=== PATIENT | male | born 1950 | race African-American/Black ===

== ENCOUNTER 2019-09-05 06:24 | Inpatient (IN) | payer MEDICARE ==
[~2019-09-05] VITALS: Ht 182.9 cm; Wt 116.7 kg
[2019-09-05 06:25] VITALS: BP 212/113
--- NOTE | 2019-09-05 07:24 | NUR ---
MICHELLE, SISTER, PT OK'D TO TALK WITH HER TO LET HER KNOW WHAT IS GOING ON. [phone]
[2019-09-05 07:30] LABS: ABSOLUTE NEUTROPHILS 3.8 thou/uL (1.4-8.2); BASOPHILS 0.6 % (0.0-2.0); EOSINOPHILS 0.8 % (0.0-3.0); HEMATOCRIT 34.9 % (42.0-52.0); HEMOGLOBIN 11.3 gm/dL (14.0-18.0); LYMPHOCYTES 18.2 % (24.0-44.0); MCH 27.9 pg (26.0-34.0); MCHC 32.3 g/dL (28.0-37.0); MCV 86.6 fL (80.0-100.0); MONOCYTES 9.2 % (1.0-8.0); PLATELET COUNT 235 thou/uL (150-400); POLYS 71.2 % (36.0-66.0); RBC 4.04 mil/uL (4.50-6.00); WBC 5.4 thou/uL (4.0-11.0)
--- NOTE | 2019-09-05 07:30 | NUR ---
TOOK PATIENT OFF BIPAP AND PLACED ON HIGH FLOW NASAL CANNULA @ 10LPM. PATIENT IS MAKING A SNORING AND GRUNTING NOISE OFF BIPAP. WILL DISCUSS WITH AND SEE IF SHE IS WANTING HIM LEFT ON BIPAP DUE TO ORIENTATION AND RESPIRATIONS THAT MAY NOT BE EFFECTIVE
[2019-09-05 07:37] LABS: ANION GAP 7 mmol/L (7-16); BUN 13 mg/dL (7-18); CALCIUM 8.8 mg/dL (8.5-10.1); CHLORIDE 106 mmol/L (98-107); CO2 30 mmol/L (21-32); CREATININE 1.4 mg/dL (0.7-1.3); GLUCOSE 57 mg/dL (74-106); POTASSIUM 4.2 mmol/L (3.5-5.1); SODIUM 143 mmol/L (136-145)
[2019-09-05 07:46] LABS: ALBUMIN 2.9 g/dL (3.4-5.0); DIRECT BILIRUBIN 0.2 mg/dL (<0.1-0.2); SGOT 70 U/L (15-37); SGPT 54 U/L (30-65); TOTAL BILIRUBIN 0.2 mg/dL (<0.1-1.0); TOTAL PROTEIN 8.3 g/dL (6.4-8.2); TROPONIN-I <0.06 ng/mL (<0.06)
[2019-09-05 08:05] LABS: BE(vivo) 0.2 mmol/L (-2 to +3); HCO3 26.5 mmol/L (22.0-26.0); PCO2 50.8 mmHg (35.0-45.0); PO2 101.6 mmHg (80.0-100.0); pH 7.336 (7.360-7.450); sO2 97.2 % (92.0-98.0)
--- NOTE | 2019-09-05 08:06 | EKG ---
[facility] [place] [address] ELECTROCARDIOGRAM REPORT Name: MACHO LEDESMA Room #: 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
[2019-09-05 08:15] LABS: URINE BILIRUBIN NEGATIVE (Negative); URINE BLOOD TRACE (Negative); URINE CLARITY CLEAR; URINE COLOR YELLOW; URINE GLUCOSE-RANDOM* NEGATIVE (Negative); URINE KETONES NEGATIVE (Negative); URINE LEUKOCYTES-REFLEX NEGATIVE (Negative); URINE NITRITE-REFLEX NEGATIVE (Negative); URINE PROTEIN (DIPSTICK) 1+ (Negative); URINE SPECIFIC GRAVITY 1.015 (1.005-1.035); URINE UROBILINOGEN 0.2 E.U./dl (0.2-1.0)
[2019-09-05 08:30] LABS: BACTERIA-REFLEX 1-9 Few /HPF (None Seen); CASTS None Seen /LPF (None Seen); CRYSTALS None Seen /LPF (None Seen); SQUAMOUS 0-3 Few /LPF (0-3); URINE RBC None Seen /HPF (0-2); URINE WBC-REFLEX None Seen /HPF (0-5)
[2019-09-05] MEDS ORDERED: XARELTO20 MG PO (08:58)
[2019-09-05] MEDS ORDERED: LIPITOR40 MG PO (08:58)
[2019-09-05] MEDS ORDERED: ADVAIR 500-501 EACH INH (08:58)
[2019-09-05] MEDS ORDERED: FUROSEMIDE 40 M40 MG PO (08:59)
[2019-09-05] MEDS ORDERED: JANUVIA100 MG PO (08:59)
[2019-09-05] MEDS ORDERED: JARDIANCE10 MG PO (08:59)
[2019-09-05] MEDS ORDERED: LEVEMIR FL100 UNIT/2 SUBQ (09:01)
[2019-09-05] MEDS ORDERED: POTASSIUM20 PO (09:01)
[2019-09-05] MEDS ORDERED: SPIRIVA18 MCG INH (09:02)
[2019-09-05] MEDS ORDERED: TRAZODONE 150150 M1 PO ×2 (09:02→19:53)
[2019-09-05] MEDS ORDERED: GABAPENTIN100 MG PO (09:03)
[2019-09-05] MEDS ORDERED: SUBOXONE 8 MG-1 EAC3 SUBLING ×2 (09:03→22:00)
[2019-09-05] MEDS ORDERED: LEXAPRO 10 MG T10 M1 PO (09:04)
[2019-09-05] MEDS ORDERED: PROAIR HFA8.5 GM INH (09:05)
[2019-09-05] MEDS ORDERED: IPRAT-ALBUT 0.5-3 ML INH ×2 (09:05→09:07)
[2019-09-05] MEDS ORDERED: PRINIVIL10 MG PO (09:06)
[2019-09-05] MEDS ORDERED: VENTOLIN HFA 1818 GM INH (09:06)
[2019-09-05] MEDS ORDERED: BUSPIRONE HCL5 MG PO (09:08)
[2019-09-05 12:38] VITALS: BP 162/94
[2019-09-05 12:52] VITALS: BP 168/96
[2019-09-05 13:09] VITALS: BP 168/96
--- NOTE | 2019-09-05 14:43 | NUR ---
ASSESSMENT: CM REVIEWED CHART AND SPOKE WITH PATIENT VIA PHONE WELL WITH HIS SISTER MICHELLE. PT WAS ADMITTED WITH INCREASED SHORTNESS OF BREATH. PT IS CURRENTLY IN ISOLATION TO RULE OUT COVID 19. PT LIVES AT HOME WITH HIS SISTER IN [place]. PT HAS ABOUT 10 STEPS WITH HANDRAILS TO GET INTO HIS BEDROOM. SISTER REPORTS PT NORMALLY AMBULATES INDEPENDENTLY BUT DOES HAVE A CANE AND WALKER AT HOME BUT DOES NOT USE IT ALTHOUGH SISTER ENCOURAGES HIM TO. PT HAS A NEBULIZER AT HOME. PT IS CURRENTLY ON 8L OXYGEN BUT DOES NOT HAVE IT ARRANGED AT HOME. PT IS UNCLEAR IF HE HAS HAD HH IN THE PAST AND REPORTS HE HAS NOT BEEN TO A SNF. PLANS ARE FOR PATIENT TO RETURN HOME ONCE MEDICALLY STABLE. CM WILL CONTINUE TO FOLLOW TO ASSIST NEEDED.
--- NOTE | 2019-09-05 18:05 | NUR ---
ALERT AND ORIENTED X 4, LUNGS COURSE AND WHEEZY IN ALL [place] BILATERALLY. WEANED TO 3LNC, REMAINS SOA AT REST. IV TEAM PLACED 20G IN RIGHT FOREARM, FLUSHES WELL. LARGE, BOW, FORMED BM THIS SHIFT, PASSING FLATUS. MESSAGE LEFT WITH DORA SERRATO REGARDING SOME HOME MEDS THAT THE PATIENT IS REQUESTING FOR HS. NO REPORTED NAUSEA/VOMITING. C/O PAIN IN LEFT LEG, WILL AWAIT ORDERS FOR PAIN MEDICATION. OOB WITH ASSIST X 2, IS ABLE TO USE URINAL AND BEDPAN. FALL PRECAUTIONS IN PLACE, CALLS APPROPRIATELY FOR ANY NEEDED ASSISTANCE.
[2019-09-05 19:39] VITALS: BP 147/82
[2019-09-05] MEDS ORDERED: TRAZODONE HCL100 MG PO (19:45)
[2019-09-05] MEDS ORDERED: XANAX1 MG PO (19:49)
--- NOTE | 2019-09-05 23:06 | NUR ---
ASSUMED PT CARE AROUND 1930. AXOX4. VSS. REQEUSTED TO HAVE HOME MEDS SUBOXOME,XANAX. SPOKE TO EMMA STEAM BLOCKER EXECUTIVE DIRECTOR OF NURSING AND MEDS RESTARTED. BS 417 REPORTED TO STEAM BLOCKER AND ADDITIONAL 5UNIT INSULIN GIVEN. NO S/S ACUTE DISTRESS NOTED OR REPORTED AT THIS TIME. CARE TRANSFERRED TO ANOTHER RN AT THIS TIME.
[2019-09-05 23:38] VITALS: BP 141/56
[2019-09-06 00:07] LABS: GLYCOHEMOGLOBIN (HGB A1C) 8.6 % (4.8-5.6)
--- NOTE | 2019-09-06 03:52 | NUR ---
Assumed pt care at 2300. Pt's A/OX4. VSS. Pt denies pain on assessment. LS coarse with wheezes, no c/o SOA. Oxygen titrated to 2L/NC by RT sats 100% at rest. Pt's max assist, voiding per urinal. Enhanced isolation maintained. Fall precautions in place,pt calls approp for help. Resting quietly at this time will continue to monitor pt.
[2019-09-06 04:00] VITALS: BP 159/96
[2019-09-06 09:00] VITALS: BP 137/80
[2019-09-06 10:45] LABS: ABSOLUTE NEUTROPHILS 6.7 thou/uL (1.4-8.2); BASOPHILS 0.1 % (0.0-2.0); HEMATOCRIT 29.3 % (42.0-52.0); HEMOGLOBIN 9.7 gm/dL (14.0-18.0); LYMPHOCYTES 6.5 % (24.0-44.0); MCH 28.5 pg (26.0-34.0); MCHC 33.2 g/dL (28.0-37.0); MCV 85.9 fL (80.0-100.0); MONOCYTES 2.4 % (1.0-8.0); PLATELET COUNT 188 thou/uL (150-400); RBC 3.41 mil/uL (4.50-6.00); RDW 13.9 % (10.5-14.5); WBC 7.3 thou/uL (4.0-11.0)
[2019-09-06 10:51] LABS: CALCIUM 8.5 mg/dL (8.5-10.1); CREATININE 1.4 mg/dL (0.7-1.3); MAGNESIUM 1.9 mg/dL (1.8-2.4); POTASSIUM 4.7 mmol/L (3.5-5.1)
--- NOTE | 2019-09-06 13:45 | NUR ---
ON-GOING ASSESSMENT: CM REVIEWED CHART AND SPOKE WITH ATTENDING. PT IS SLOWLY PROGRESSING TOWARDS DISCHARGE GOALS. PT IS DOWN TO 2L OF OXYGEN. PTS COVID TEST CAME BACK NEGATIVE AND THERAPIES WILL EVAL. PT IS POSSIBLE DISCHARGE SOON, CM WILL AWAIT FUTHER INPUT FROM THERAPIES.
[2019-09-06 17:27] VITALS: BP 144/85
--- NOTE | 2019-09-06 19:22 | NUR ---
Assumed pt care this am, pt is hard of hearing and has poor eyesight as well. Pt is very forgetfull , would not remember meals that he had just eaten an hour ago stating the meal never came. Covid test came back negative, VS have been stable. IV inserted by the IV team this am. Pt repeatedly asked for ice cream, chips and sugar through out the shift. Blood sugar checks and insulin given as per the emar. Cough is still noted, effort is good. Pt is O2 sat is in the high 90's to 100% with out O2. pt Andreea Johnson, Dr. Lyman would like to test for a 2nd covid to r/o. POC followed, no signs or verbalizations of distress noted. INforemd night nurse of plan, awaiting 2nd testing to be placed.
--- NOTE | 2019-09-07 07:45 | NUR ---
progress pt in bed most of shift repositions self, up with assist of 2 gb and walker iv antibiotics continue taking tramadol for pain and suboxone for pain. very anxious wants what he requests immediately get frustrated if you are not fast enough continue to monitor.
[2019-09-07 08:00] VITALS: BP 163/97
--- NOTE | 2019-09-07 10:12 | HC ---
[facility] [place] [address] CONSULTATION Name: MACHO LEDESMA Room #: [facility] IN M.R.#: [id number] Admission: 09/05/19 Attend Phys: Lawson Hurley MD Discharge: Date of : 52 Report #: [id number] THIS REPORT FOR: cc: IDA - Family physician unknown IDA - Family physician unknown Channing Ann MD ~ CC: Lawson PRIETO unknown DATE OF SERVICE: 09/06/2019 ENDOCRINE CONSULTATION CONSULTING PHYSICIAN: Dr. Hurley. REASON FOR CONSULTATION: Uncontrolled type 2 diabetes mellitus, severe hyperglycemia. HISTORY OF PRESENT ILLNESS: This is a 69-year-old male patient whose medical background is significant for multiple medical issues including COPD, hypertension, type 2 diabetes mellitus as well as DVT. The patient presented to the ER yesterday with progressive shortness of breath, weakness, and fatigue for the week preceding presentation. This happened in the absence of fever or cough. The patient was admitted for further care and monitoring and was admitted to the COVID observation unit while he rules out for this possibility. The patient is known to have type 2 diabetes mellitus and has had it for several years. The patient notes that he is on a regimen of Januvia 100 mg daily, Jardiance 25 mg daily and Levemir insulin 48 units twice a day at home. He notes that his blood glucose values are typically elevated and well over 200 mg/dL. He does not have routine physical activity program, and he denies issues with recurrent or significant hypoglycemia at home. The patient is not aware of issues pertaining to diabetic retinopathy, nephropathy, or neuropathy. The patient has not had a history of CAD that he is aware of. He is known to have hyperlipidemia and is maintained on atorvastatin 40 mg daily. He has hypertension and is maintained on a regimen of furosemide and lisinopril and believes that he does well as far as blood pressure control goes. REVIEW OF SYSTEMS: CONSTITUTIONAL: Fatigue, tiredness. No fever, chills or body weight changes. HEENT: Negative for sore throat, sinus pain or ear drainage. PULMONARY: Noted for shortness of breath, but not cough or hemoptysis. CARDIAC: Noted for shortness of breath including on exertion. No chest pain, no palpitations. GASTROINTESTINAL: Negative for abdominal pain, nausea, vomiting or changes in the bowel movement frequency. [address] [address] CONSULTATION Name: MACHO LEDESMA Room #: [address] [place] [address] IN M.R.#: [id number] Admission: 09/05/19 Attend Phys: Lawson Hurley MD Discharge: Date of : 52 Report #: [id number] NEUROLOGY: Negative for loss of consciousness, headaches or seizure activity. PSYCHIATRIC: Negative for delusions, hallucinations. Otherwise, review of systems noncontributory other than those mentioned in HPI. PAST MEDICAL HISTORY: 1. Type 2 diabetes mellitus. 2. Hypertension. 3. Hyperlipidemia. 4. Obesity. 5. Neuropathy. 6. Depression. 7. COPD. 8. History of left lower extremity DVT. 9. History of pleural effusion. 10. Hepatitis C. OUTPATIENT MEDICATIONS: Include Xanax 1 mg p.o. b.i.d., Suboxone 8 mg-2 mg, Advair 1 puff b.i.d., Xarelto 20 mg with dinner, atorvastatin 40 mg daily, Januvia 100 mg daily, Jardiance 25 mg daily, furosemide 40 mg daily, Levemir insulin 48 units b.i.d., KCl 20 mEq daily, trazodone 150 mg at bedtime, Spiriva daily, gabapentin 100 mg b.i.d., Lexapro 10 mg at bedtime, ipratropium-albuterol combination q. 6 hours p.r.n., albuterol 2 puffs q. 6 hours p.r.n., lisinopril 10 mg daily, buspirone 5 mg daily. ALLERGIES: No known drug allergies. FAMILY HISTORY: Noncontributory. SOCIAL HISTORY: The patient lives with his sister. Smokes a pack a day. Drinks alcohol only occasionally. Denies use of illicit drugs. PHYSICAL EXAMINATION: GENERAL: Pleasant -Lao male patient who is not in apparent pain or distress. VITAL SIGNS: Blood pressure is 137/80 mmHg, heart rate is 101 beats per minute, respiration 20 per minute, temperature 36.5 Celsius. CONSTITUTIONAL: The patient is lying in bed, appears comfortable, and not in pain or distress. HEENT: Anicteric sclerae. Intact extraocular motions. NECK: Supple, without JVD or thyromegaly. CHEST: Noted for limited air entry bilaterally with scattered rales and rhonchi, scattered wheezes, no crackles. HEART: Regular rate and rhythm without murmurs or gallops. ABDOMEN: Obese, but soft, lax. No guarding. Active bowel sounds. EXTREMITIES: Lower extremity exam is noted for trace ankle edema, skin breaks, ulcerations. Pedal pulses are faint. Sensation to light touch is moderately [facility] [address] [place] [address] CONSULTATION Name: MACHO LEDESMA Room #: 358-P ADM IN M.R.#: [id number] Admission: 09/05/19 Attend Phys: Lawson Hurley MD Discharge: Date of : 52 Report #: [id number] diminished bilaterally. NEUROLOGIC: Awake, alert and oriented to time, place and person. The remainder of his examination is nonfocal other than for the peripheral sensory deficits noted above. PSYCHIATRY: Pleasant, interactive. Normal mood and affect. LABORATORY RESULTS: Blood glucose on arrival was 44, then 139 and then blood glucose over the past 24 hours have run between 348 and 417 mg/dL. Otherwise, sodium 131, potassium 4.7, chloride 97, CO2 of 29, anion gap 5, BUN 24, creatinine 1.4, glucose 401. AST 70, total bilirubin 0.2, direct bilirubin 0.2, calcium 8.5, magnesium 1.9, alkaline phosphatase 129, ALT 54, total protein 8.3, albumin 2.9 and EGFR 61. Troponin negative. INR 1.0. White blood count 7.3, hemoglobin 9.7, hematocrit 29.3, platelets 188. COVID-19 not detected. Hemoglobin A1c 8.6%. ASSESSMENT AND PLAN: 1. Type 2 diabetes mellitus. The patient has suboptimal baseline control as per his reported blood glucose values as well as according to the measured hemoglobin A1c. To add to this baseline, the patient is dealing with acute pulmonary processes and is receiving therapy with multiple modalities including high dose glucocorticoid therapy in the form of methylprednisolone 62.5 mg IV t.i.d. This collective outlook had resulted in severe hyperglycemia, probably will be on his expected baseline of high 100 to low 200 mg/dL range. That said, I will advance his insulin coverage to include Lantus at a dose of 25 units b.i.d. in addition to Humalog supplemental scale at a dose of 18 units t.i.d. a.c. and Humalog supplemental scale coverage of moderate intensity. Blood glucose monitoring will continue a.c. and at bedtime and further therapeutic adjustments will be made accordingly. 2. Hypertension. The patient's level of blood pressure control is adequate on the current regimen, he is to continue with the same. 3. Hyperlipidemia. The patient is maintained on atorvastatin therapy and he tolerates it well, he is to continue with the same. 4. Chronic obstructive pulmonary disease, possible community-acquired pneumonia. The patient is currently receiving therapy with broad-spectrum antibiotics, bronchodilators and corticosteroids as per the pulmonary team. I certainly appreciate this consultation by Dr. Hurley. <ELECTRONICALLY SIGNED> By: Channing Ann MD 09/07/19 1012 1608 2255 Channing Ann MD /nt
--- NOTE | 2019-09-07 11:22 | NUR ---
REFERRAL RECEIVED FOR ACUTE REHAB. PATIENT'S INSURANCE IS OUT OF NETWORK FOR 5N. SHIRT IRONER INFORMED. THANK YOU FOR THIS REFERRAL.
--- NOTE | 2019-09-07 12:36 | 2DMMODE ---
[facility] [address] [place] [address] 2 D/M-MODE ECHOCARDIOGRAM Name: MACHO LEDESMA Room #: 358-P ADM IN M.R.#: [id number] Admission: 09/05/19 Attend Phys: Lawson Hurley MD Discharge: Date of : 52 Report #: [id number] THIS REPORT FOR: cc: FAM - Family physician unknown FAM - Family physician unknown Maurice Corral MD ~ APPROVED REPORT Study performed: 09/07/2019 10:59:43 EXAM: Comprehensive 2D, Doppler, and color-flow Echocardiogram Patient Location: Bedside Room #: [facility] Status: routine BSA: 2.41 HR: 101 bpm BP: 137/80 mmHg Rhythm: Tachycardia Other Information Study Quality: Good Indications Congestive Heart Failure Diabetes Dyspnea Hypertension/HDD 2D Dimensions RVDd: 42.68 mm IVSd: 12.84 (7-11mm) LVOT Diam: 20.80 (18-24mm) LVDd: 58.01 mm PWd: 13.26 (7-11mm) Ascending Ao: 33.65 (22-36mm) LVDs: 43.09 (25-40mm) Aortic Root: 34.16 mm IVC: 25.00 mm Volumes Left Atrial Volume (Systole) Single Plane 4CH: 86.50 mL Single Plane 2CH: 72.48 mL LA ESV Index: 35.00 mL/m2 Aortic Valve AoV Peak Rahat.: 1.77 m/s AO Peak Gr.: 12.56 mmHg LVOT Max P.63 mmHg [facility] [address] [place] [address] 2 D/M-MODE ECHOCARDIOGRAM Name: MACHO LEDESMA Room #: 358-[facility] IN .R.#: [id number] Admission: 09/05/19 Attend Phys: Sofy Su Discharge: Date of : 52 Report #: [id number] LVOT Max V: 1.29 m/s JARAD Vmax: 2.47 cm2 Mitral Valve E/A Ratio: 1.1 MV Decel. Time: 263.63 ms MV E Max Rahat.: 1.81 m/s MV A Rahat.: 1.65 m/s MV PHT: 76.45 ms IVRT: 51.90 ms Pulmonary Valve PV Peak Rahat.: 1.23 m/s PV Peak Gr.: 6.18 mmHg Pulmonary Vein P Vein S: 0.69 m/s P Vein A: 0.22 m/s P Vein D: 0.67 m/s P Vein A Dur.: 48.4 msec P Vein S/D Ratio: 1.03 Tricuspid Valve TR Peak Rahat.: 3.83 m/s TR Peak Gr.: 58.74 mmHg PA Pressure: 69.00 mmHg Left Ventricle Left ventricle is at the upper limits of normal. There is normal LV segmental wall motion. Mild concentric left ventricular hypertrophy. The left ventricular systolic function is normal. The left ventricular ejection fraction is within the normal range. LVEF is >55%. Grade II - pseudonormal filling dynamics. Right Ventricle The right ventricular systolic function is normal. Atria Left atrium is dilated. Right atrium is dilated. Aortic Valve The aortic valve is normal in structure. The Aortic valve is sclerotic. No aortic regurgitation is present. There is no aortic valvular stenosis. Mitral Valve The mitral valve is normal in structure. Moderate to severe mitral regurgitation No evidence of mitral valve stenosis. [facility] [address] [place] [address] 2 D/M-MODE ECHOCARDIOGRAM Name: MACHO LEDESMA Room #: 358-P [facility] IN .R.#: [id number] Admission: 09/05/19 Attend Phys: Sofy Su Discharge: Date of : 52 Report #: [id number] Tricuspid Valve The tricuspid valve is normal in structure. There is mild tricuspid regurgitation. Estimated PAP 65 mmHg. There is moderate-severe pulmonary hypertension. Pulmonic Valve The pulmonary valve is normal in structure. There is no pulmonic valvular regurgitation. Great Vessels The aortic root is normal in size. IVC is dilated and collapses <50% with inspiration. Pericardium There is no pericardial effusion. <Conclusion> Left ventricle is at the upper limits of normal. Mild concentric left ventricular hypertrophy. The left ventricular systolic function is normal. Grade II - pseudonormal filling dynamics. Left atrium is dilated. The Aortic valve is sclerotic. Moderate to severe mitral regurgitation There is mild tricuspid regurgitation. Estimated PAP 65 mmHg. <ELECTRONICALLY SIGNED> By: Maurice Corral MD 09/07/19 1235 1235 1235 Maurice Corral MD /INF
--- NOTE | 2019-09-07 15:39 | NUR ---
DAYANA reviewed chart and spoke with nursing and attending physician. Awaiting repeat COVID-19 test results. Pt is progressing towards goals for discharge. Pt is currently off O2 and ambulating independently. SW attempted to contact pt in room. No answer. DAYANA also attempted to call pt's sister, Helen, to discuss discharge plan. Plan is for pt to discharge home. Therapy has not evaluated pt at this time. DAYANA is following to assist as needed with discharge planning.
[2019-09-07 16:24] VITALS: BP 132/82
[2019-09-07 17:00] VITALS: BP 117/92
--- NOTE | 2019-09-07 17:07 | NUR ---
ASSUMED PATIENT CARE AT 070-0. A/O X3. IMPULSIVE SOMETIMES. ANXIOUS. SOB WIH EXERTION.MBULATED IN [facility]. 2+ EDEMA BLE. TRANSFER TO [facility] AT 1600.
[2019-09-07 19:15] VITALS: BP 131/79
[2019-09-08 04:16] VITALS: BP 164/99
--- NOTE | 2019-09-08 06:05 | NUR ---
ASSUME CARE 1900. PT/VITALS STABLE. DENIES ANY PAIN. TOLERATES ACTIVITY WELL. UP AD ALEXANDRO. NO DISTRESS NOTED. BLOOD SUGAR STABILIZED. ASSESSMENT CHARTED. PROGRESSING WELL WITH POC. PLAN IS POOSIBLE DISCHARGE TODAY. WILL CONTINUE TO MONITOR AND FOLLOW WITH POC
[2019-09-08 07:18] VITALS: BP 140/91
[2019-09-08 10:43] VITALS: BP 152/95
[2019-09-08 11:05] LABS: HEMATOCRIT 33.8 % (42.0-52.0); HEMOGLOBIN 10.9 gm/dL (14.0-18.0)
[2019-09-08 11:06] LABS: CALCIUM 8.7 mg/dL (8.5-10.1); CREATININE 1.5 mg/dL (0.7-1.3); POTASSIUM 5.3 mmol/L (3.5-5.1)
[2019-09-08 12:28] VITALS: BP 137/64
[2019-09-08 17:17] VITALS: BP 161/102
--- NOTE | 2019-09-08 19:16 | NUR ---
RECEIVED PT'S CARE AROUND 729; PT. 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 UPSET ST. "WHILE ARE YOU LOOKING ON MY STAFF"; EDUCATED ABOUT HOSPITAL POLICIE NOT ABLE TO SMOKE WHILE IN THE HOSPITAL & NURSE WAS NOT LOOKING OVER PT'S STAFF, BUT WAS HELPING TO LOOK FOR PT'S STAFF; SHOOTING AT NURSE "DO NOT GET ON MY STAFF"; DURING ASSESSMENT C/O PAIN; REQUESTED "XANAX"; AM MEDICATION GIVEN; PRN ANTI-ANXIETY MEDICATION GIVEN; FORGETFUL; NEEDS TO BE REMAINED THROUGH THE DAY TO CALL BEFORE GETTING UP FROM BED & MEDICATION WAS GIVEN; TRIED TO SMOKE CIGARRETE IN THE ROOM; SECURITY NOTIFIED; CIGARRETES TAKEN BY SECURITY; ASSESSMENT CHARGED; FOLLOWING POC; PASSED ON REPORT;
[2019-09-08 19:19] VITALS: BP 160/82
--- NOTE | 2019-09-09 03:37 | NUR ---
Pt. rested quietly during the night when checked on during frequent rounds. He became hostile during hs med pass. Pt. only took the meds that he wanted (see emar). Pt. upset and wants to go home. Started to get up and walk towards the door. When this nurse tried to talk to him he shrugged his hands. Aerodynamics Professor entered the room and we were able to redirect back to bed. He requested pain meds for leg pain (see emar) with some relief noted. Also, given a xanax for agitation (see emar) with relief noted. Bed alarm is on.
[2019-09-09 04:15] VITALS: BP 161/92
--- NOTE | 2019-09-09 04:15 | NUR ---
Pt. resting in bed. He is cool and clammy upon touch. Blood sugar is <20 per glucometer. Prn iv dextrose given (see emar). Blood sugar rechecked and still <20. Im glucogen given (see emar). Lab called for glucose draw. Pt. also congested and lung sounds are course. Head of the bed is elevated. Rt called and breathing treatment given and oral suctioning given. Trinity SERRATO was called and updated. New orders received for iv dextrose (see orders).
--- NOTE | 2019-09-09 05:11 | NUR ---
Pt. more arousable and blood sugar up to 39. Continue to monitor blood sugars.
--- NOTE | 2019-09-09 06:00 | NUR ---
Blood sugar up to 61 and pt. is easily arousable. Bed alarm is on.
[2019-09-09 06:20] LABS: ALBUMIN 2.7 g/dL (3.4-5.0); CALCIUM 8.7 mg/dL (8.5-10.1); CREATININE 1.3 mg/dL (0.7-1.3); TOTAL BILIRUBIN 0.2 mg/dL (<0.1-1.0); TOTAL PROTEIN 7.6 g/dL (6.4-8.2)
[2019-09-09 06:21] LABS: POTASSIUM 4.2 mmol/L (3.5-5.1)
[2019-09-09 06:36] LABS: HEMATOCRIT 37.6 % (42.0-52.0); HEMOGLOBIN 12.4 gm/dL (14.0-18.0); MCH 28.2 pg (26.0-34.0); MCV 85.4 fL (80.0-100.0); RBC 4.4 mil/uL (4.50-6.00); RDW 14.4 % (10.5-14.5); WBC 8.8 thou/uL (4.0-11.0)
[2019-09-09 08:06] VITALS: BP 141/91
[2019-09-09 12:16] LABS: TSH 1.518 uIU/mL (0.358-3.740)
[2019-09-09 15:43] VITALS: BP 144/78
--- NOTE | 2019-09-09 18:31 | NUR ---
RECEIVED PT'S CARE AROUND 0720; PT. ALERT; AWAKE; ST. "I AM UPSET WITH YOU"; D10 RUNNING AT 75 ML/H; BS 61; GAME PROTECTOR NOTIFIED ABOUT PT'S BS LESS THAN 21 THROUGH THE NIGHT & 61 DURING AM; ORDERS RECEIVED; DURING AM ASSESSMENT PT. ALERT TO PERSON; AM MEDICATIONS GIVNE; C/O PAIN OVER LLE; PRN PAIN MEDICATION GIVEN; DURING THE MORNING RESTLESS; UNCOOPERATIVE; IMPULSIVE FROM TIME TO TIME; EDUCATED ABOUT FALL PREVENTIONS; ST. UNDERSTANDING; NEEDS TO BE REMAINED; IV INFILTRATED; FLUIDS ON HOLD SINCE 1000; DR. KAMARA ROUNDING ON PT. DURING THE MORNING; PER DR. KAMARA REPORT PT DRINK AT LEAST ONE PINT OF ALCOHOL DAILY; SMOKER; HX OF CVA; REQUESTED TO TALK WITH HOSPITALIST; DR. PEREZ NOTIFIED & UPDATE BY DR. KAMARA; DURING LUNCH BS ON THE 200s; DR. ANAND ROUNDING; NOTIFIED; OK TO GIVE INSULIN; D10 D/C PER ORDER; DURING THE AFTERNOON PT. RESTLESS; PRN MEDICATION GIVEN; REMAINED RESTLESS; PHYSICIAN NOTIFIED; ORDERS RECEIVED; PT. RESTING; HOLDING MEDICATION AT THE MOMENT; SR ON THE MONITOR; ASSESSMENT CHARGED; FOLLOWING POC; WILL PASS ON REPORT;
[2019-09-09 19:46] VITALS: BP 145/81
--- NOTE | 2019-09-10 04:21 | NUR ---
ASSUMED PATIENT CARE AT 1845. VITAL SIGNS STABLE WITH PATIENT HAVING NO COMPLAINTS OF PAIN OR NAUSEA. PATIENT ALERT AND ORIENTED TO HIMSELF AND THAT HE IS IN THE HOSPITAL. FREQUENTLY IMPULSIVE, HE HAS RESPONDED TO NURSING STAFFS DIRECTIONS. UP MULTIPLE TIMES WITH ASSISTANCE INCIDENT FREE. CONTINUE PLAN OF CARE.
[2019-09-10 04:31] VITALS: BP 154/85
[2019-09-10 07:10] VITALS: BP 167/100
--- NOTE | 2019-09-10 07:18 | NUR ---
PATIENTS BLOOD SUGAR CHECKED AROUND 0520 THIS MORNING WITH PATIENT SHOWING BLOOD GLUCOSE LESS THAN 20. IM GLUCOGON GIVEN DUE TO QUESTION REGARDING PATIENTS IV PLACEMENT. PROVIDER CALLED AND ORDERS RECEIVED. PATIENTS BLOOD SUGAR HAS REBOUNDED IN TO MID 100'S PRIOR TO SHIFT CHANGE.
[2019-09-10 10:38] LABS: CALCIUM 9.2 mg/dL (8.5-10.1); CREATININE 1.2 mg/dL (0.7-1.3)
[2019-09-10 10:40] LABS: POTASSIUM 5.1 mmol/L (3.5-5.1)
[2019-09-10 11:48] VITALS: BP 169/88
[2019-09-10 16:18] VITALS: BP 155/79
--- NOTE | 2019-09-10 17:54 | NUR ---
Assumed care approx 0700. Pt confused and impulsive. Pt reports Lt flank pain and headache this shift. Medication given per orders and pt reports relief. Pt has been noncompliant and climbs out of bed/chair. Pt's sister, Helen, updated on status. Pt slowly progressing towards plan of care goals.
[2019-09-10 19:56] VITALS: BP 160/84
[2019-09-11 05:11] VITALS: BP 147/74
[2019-09-11 05:14] LABS: BE(vivo) 2.8 mmol/L (-2 to +3); HCO3 28.2 mmol/L (22.0-26.0); PCO2 46.8 mmHg (35.0-45.0); PO2 65.6 mmHg (80.0-100.0); pH 7.398 (7.360-7.450); sO2 92.8 % (92.0-98.0)
[2019-09-11 07:34] VITALS: BP 154/92
[2019-09-11 11:05] VITALS: BP 148/76
--- NOTE | 2019-09-11 11:18 | NUR ---
Assess for length of stay. Admit with acute respiratory failure, and acute metabolic encephalopathy. Hx DM, A1C 8.6%, COPD, HTN, CVA. Pt has been confused, impulsive but does tolerate meals eating 100%. Endocronologist adjusting medications as pt has developed some hypoglycemic episodes. Wts down 9 lb since admit, on torsemide. Low nutrition risk.
--- NOTE | 2019-09-11 12:57 | EKG ---
[facility] [place] [address] ELECTROCARDIOGRAM REPORT Name: MACHO LEDESMA Room #: 203-P ADM IN M.R.#: [id number] Admission: 09/05/19 Attend Phys: Lawson Hurley MD Discharge: Date of : 52 Report #: [id number] THIS REPORT FOR: cc: IDA - Family physician unknown FAM - Family physician unknown Dedrick Chawla MD [facility] THIS REPORT FOR: //name// [facility] Test Date: 2019-09-11 Test Time: 09:05:41 Pat Name: MACHO LEDESMA Department: Room: 203 Gender: M Crtts: JOI : 1950 Requested By: Lawson Hurley Order Number: [id number] MD: Dedrick Chawla Measurements Intervals [place] Rate: 80 P: 0 CA: 118 QRS: -2 QRSD: 82 T: 48 QT: 360 QTc: 416 Interpretive Statements Sinus rhythm Borderline short CA interval Compared to ECG 09/05/2019 06:33:07 Sinus tachycardia no longer present Electronically Signed On 09-11-2019 12:55:41 CDT by Dedrick Chawla [email or web address] <ELECTRONICALLY SIGNED> By: Dedrick Chawla MD, FACC 09/11/19 1255 4 4 Dedrick Chawla MD, [facility] /EPI
[2019-09-11 15:15] VITALS: BP 154/82
--- NOTE | 2019-09-11 16:29 | NUR ---
Spoke with sister regarding dc planning of patient. She reports she needs him home soon. He helps with the home. Discussed need for post acute care. Sister reports he will need to be agreeable. She reports he is stubborn. She has not preference. Sp with patient via phone. He is agreeable. He has no preference. His ins is [employer] medicare. Agreeable to referral to [facility].
--- NOTE | 2019-09-11 16:40 | NUR ---
FAXED REFERRAL TO [facility] SPOKE WITH SYLVIE IN ADM SHE RECEIVED REFERRAL AND WILL REVIEW. DP TO FOLLOW.
--- NOTE | 2019-09-11 17:03 | NUR ---
PT CARE ASSUMED APPROX 0700. ASSESSMENTS CHARTED. PT DENIES SOA. REPORTS LEFT FLANK PAIN AND NONCARDIAC CHEST PAIN. PAIN MANAGED ADEQUATELY PER PT PAIN REASSESSMENT. PT CONTINUES TO BE IMPULSIVE AND CONFUSED BUT REDIRECTS EASILY. PT IS LESS IMPULSIVE THAN YESTERDAY. VSS. BS ELEVATED. BS MANAGED WITH SSI. CLINICAL UPDATE GIVEN TO PT'S SISTER. SHE DENIES QUESTIONS OR CONCERNS REGARDING POC. PT TOLERATING POC. NO DISTRESS NOTED.
[2019-09-11 20:08] VITALS: BP 152/84
[2019-09-11 23:58] VITALS: BP 185/95
[2019-09-12] VITALS (8 sets, daily range): BP systolic 113–152; BP diastolic 55–90
--- NOTE | 2019-09-12 05:20 | NUR ---
PT A&O X3 AT HS ALERT TO SELF, PLACE AND SITUATION. ANXIOUS/IMPULSIVE AT HS BUT GOT BETTER THRO THE NIGHT. REFUSED BIPAP AT HS. NO COMPLAINS OF PAIN. CONTINUES WITH PRODUCTIVE COUGH. ACHS. INCONT OF URINE X1 THIS SHIFT USES URINAL. PT DOES NOT CALL APPROPRIATELY.
[2019-09-12 10:22] LABS: ALBUMIN 2.7 g/dL (3.4-5.0); CALCIUM 8.8 mg/dL (8.5-10.1); CREATININE 1.3 mg/dL (0.7-1.3); POTASSIUM 4.5 mmol/L (3.5-5.1); TOTAL BILIRUBIN 0.5 mg/dL (<0.1-1.0); TOTAL PROTEIN 6.8 g/dL (6.4-8.2)
[2019-09-12] MEDS ORDERED: SENNA-TIME S T1 EACH PO (11:46)
[2019-09-12] MEDS ORDERED: IPRAT-ALBUT 0.5-3 ML INH (11:46)
[2019-09-12] MEDS ORDERED: DEMADEX20 MG PO (11:46)
[2019-09-12] MEDS ORDERED: ASPIR 8181 MG PO (11:46)
[2019-09-12] MEDS ORDERED: XARELTO15 MG PO (11:46)
[2019-09-12] MEDS ORDERED: XARELTO20 MG PO (11:46)
[2019-09-12] MEDS ORDERED: VITAMIN B-1100 M2 PO (11:46)
[2019-09-12] MEDS ORDERED: PREDNISONE 10 M10 MG PO (11:46)
[2019-09-12] MEDS ORDERED: NICOTINE TRANSD21 M1 TRANSDERM (11:46)
[2019-09-12] MEDS ORDERED: LOPRESSOR50 PO (11:46)
[2019-09-12] MEDS ORDERED: SEROQUEL 25 MG25 M1 PO (11:46)
[2019-09-12] MEDS ORDERED: TRAMADOL 50 MG50 MG PO (11:46)
[2019-09-12] MEDS ORDERED: PEPCID20 MG PO (11:46)
[2019-09-12] MEDS ORDERED: CEFDINIR300 MG PO (11:49)
--- NOTE | 2019-09-12 13:16 | NUR ---
[facility] not accepting of referral of patient due to noncompliance. Sp with patient and sister. Sister lives in [place], referral to [facility]. Updated phys and RN.
--- NOTE | 2019-09-12 13:36 | NUR ---
FAXED REFERRAL TO [facility] RECEIVED CONFIRMATION AND LEFT MSG WITH DEYANIRA IN ADM. DP TO FOLLOW.
[2019-09-12 14:07] LABS: CHOLESTEROL 165 mg/dL (<200); HDL CHOLESTEROL 80 mg/dL (>40); LDL CHOLESTEROL 58 mg/dL (<100); TC:HDL 2.1 Ratio (Not establshd); TRIGLYCERIDE 135 mg/dL (<150); VLDL 27 mg/dL (<40)
--- NOTE | 2019-09-12 14:42 | NUR ---
[facility] accepting of patient. They do not have a bed today but will have tomorrow. They are in process of submitting for auth.
--- NOTE | 2019-09-12 17:27 | NUR ---
RECEIVED PT'S CARE AROUND 0710; PT. ON BED; RESTING WITH EYES CLOSED; EQUAL CHEST RISING NOTICED; SR ON THE MONITOR; DURING AM ASSESSMENT PT. ALERT TO PERSON & SITUATION; AM MEDICATIONS GIVEN; CALM & COOPERATIVE; C/O PAIN OVER LLE; PRN PAIN MEDICATION GIVEN; RESTING THROUGH THE DAY; COOPERATIVE THROUGH THE DAY; NO BM THROUGH THE DAY; PASSING GAS; MIRALAX & STOOL SOFTENER GIVEN PER SCHEDULED; STATUS CHANGE TO MST & MS; ASSESSMENT CHARGED; FOLLOWING POC; PT. TRANSFER TO ROOM 443; WILL CALL FOR REPORT;
--- NOTE | 2019-09-13 02:23 | NUR ---
ASSUMED PT CARE AT APPROX 1900.PT WAS OBSERVED LYING IN BED WITH HOB ELEVATED.PT ON RA AT SHIFT CHANGE.PT A FALL RISK BUT PT NOT COMPLIANT WITH FALL PROTOCOL.PT NEEDS CONSTSNT REMINDER TO USE THE CALL BUTTON.PT OBSERVED TWICE GETTING OOB WITHOUT ASSIST,PT STATED THAT HE WAS LOOKING FOR A AUTOMOTIVE DETAILER FOR HIS PHONE,HE WAS ENCOURAGED TO USE HIS CALL LIGHT.NO BM NOTED SO FAR.URINAL AT BEDSIDE.FALL PRECAUTIONS IN PLACE,CALL LIGHT WITHIN REACH.
[2019-09-13 02:50] VITALS: BP 140/86
[2019-09-13 07:36] VITALS: BP 137/58
[2019-09-13 08:35] LABS: HEMATOCRIT 36.8 % (42.0-52.0); MCH 27.7 pg (26.0-34.0); MCHC 32.5 g/dL (28.0-37.0); MCV 85.4 fL (80.0-100.0); RBC 4.31 mil/uL (4.50-6.00); RDW 14.3 % (10.5-14.5); WBC 6.1 thou/uL (4.0-11.0)
[2019-09-13 09:03] LABS: ALBUMIN 2.7 g/dL (3.4-5.0); CALCIUM 8.8 mg/dL (8.5-10.1); CREATININE 1.6 mg/dL (0.7-1.3); POTASSIUM 4.3 mmol/L (3.5-5.1); TOTAL BILIRUBIN 0.8 mg/dL (<0.1-1.0); TOTAL PROTEIN 7.1 g/dL (6.4-8.2)
[2019-09-13 11:04] VITALS: BP 104/47
[2019-09-13 11:44] VITALS: BP 128/70
[2019-09-13 12:04] VITALS: BP 128/70
[2019-09-13] MEDS ORDERED: CEFDINIR300 MG PO (12:10)
[2019-09-13] MEDS ORDERED: TRADJENTA5 MG PO (12:10)
[2019-09-13] MEDS ORDERED: NOVOLOG100 UNIT/1 SUBQ (12:10)
[2019-09-13] MEDS ORDERED: LANTUS SUBQ (12:10)
--- NOTE | 2019-09-13 12:50 | NUR ---
THIS NOTE IS IN REGARD TO POST FALL, THIS RN WAS ON BREAK, FRANCK R/RN ASSSITED THE PATIENT TO THE BATHROOM AND SHE ASKED ROYCE/FOOD AND NUTRITION TEACHER IF SHE HAD THE PATIENT, ROYCE/FOOD AND NUTRITION TEACHER WAS IN THE ROOM CUTTING OFF THE LIGHT AND WHEN SHE ENTERED THE BATHROOM HE WAS ON THE FLOOR, PATIENT ASSISTED UP BY ROYCE/FOOD AND NUTRITION TEACHER AND FRANCK R/RN. I NOTIFIED THE GLASS BULB SILVERER/TALA. POST FALL ASSESSMENT DONE AND [address] PEREZ NOTIFIED AND PATIENT'S SISTER/MICHELLE. NO INJURY NOTED. BLOOD PRESSURE A LITTLE LOW 104/47, RECHECKED MANUALLY 128/70, REPORT TO DR PEREZ. BED ALARM IN PLACE, AND PATIENT INSTRUCTED TO CALL FOR ASSISTANCE. WILL CONTINUE TO MONITOR.
--- NOTE | 2019-09-13 13:39 | NUR ---
[facility] CAN ACCEPT PT THIS DAY THEY RECEIVED INSURANCE AUTH. CARE TEAM INDICATED PT IS MEDICALLY STABLE TO DC TO [facility]. CM REQUESTED CHART COPY. ORDERS AND COVID SCREENING TOOL SENT TO FACILITY. [facility] ARRANGED FOR [phone]. PT IS AWARE. CM ATTEMPTED NUMEROUS PHONE CALLS TO PT'S SISTER BUT WAS UNABLE TO REACH HER. NO OTHER CM INTERVENTION INDICATED. CASE CLOSED.
--- NOTE | 2019-09-13 15:50 | NUR ---
ASSUMED CARE OF PATIENT AT 0715, PATIENT ALERT X 1-2 WITH CONFUSION, IMPULSIVE. FALL PRECAUTIONS IN PLACE. PATIENT C/O PAIN WITH LEFT LEG, RECEIVED HYDROCODONE 1 TABLET THIS AM. PATIENT WALKED WITH PHYSICAL THERAPY/FIDEL. PATIENT UP WITH 1 ASSIST WITH GB AND WALKER. THIS RN SPOKE WITH SISTER/MICHELLE WITH UPDATE FOR THIS SHIFT. PATIENT WILL DISCHARGE TODAY TO [facility], REPORT GIVEN TO ALTAGRACIA/RN. ALL DISCHARGE PAPERWORK AND ALL PERSONAL BELONGINGS SENT WITH THE PATIENT. OMITTED TO SEND SCRIPT FOR TRAMADOL, CLEO/TRACI WILL COME TACTICAL AIR DEFENSE CONTROLLER TO TAKE TO THE FACILITY.
--- NOTE | 2019-09-14 11:52 | HC ---
[facility] [place] [address] CONSULTATION Name: MACHO LEDESMA Room #: [address] [place] [address] IN M.R.#: [id number] Admission: 09/05/19 Attend Phys: Lawson Hurley MD Discharge: 09/13/19 Date of : 52 Report #: [id number] THIS REPORT FOR: cc: IDA - Family physician unknown IDA - Family physician unknown Rasheed Oswald MD ~ CC: Lawson PRIETO unknown DATE OF SERVICE: 09/07/2019 HISTORY OF PRESENT ILLNESS: The patient is a 69-year-old -Trinidadian male admitted to [facility] with increased shortness of breath over the last couple of weeks. He apparently had recently been hospitalized at [facility], had a pleural effusion and underwent thoracentesis and also was diagnosed with left lower extremity deep venous thrombosis. Upon admission here, he was noted to have acute hypoxic respiratory failure with some toxic metabolic encephalopathy and was noted to have a left basilar infiltrate. He has been followed by Pulmonary Medicine as well as Infectious Disease. He was a COVID-19 rule out and per my review the COVID test was negative. He has improved as far as his oxygen needs dropping from 8 on admission down to where he is on room air. He notes he is feeling better. We are seeing him in rehabilitation medicine consultation. PAST MEDICAL HISTORY: Prior medical history includes COPD, hypertension, diabetes mellitus, left lower extremity DVT, prior pleural effusion, hypertension, tobacco abuse with continued smoking, history of polysubstance abuse, hepatitis C. MEDICATIONS: Please see the full medication listing. HABITS: Current every day smoker of cigarettes. ALLERGIES: No known drug allergies. SOCIAL HISTORY: He lives in a condominium with his sister, one step in. There are 10 steps inside to get up to his bedroom. He apparently has a cane and a walker, but did not typically use it. He was not on any O2 at home. REVIEW OF SYSTEMS: Did not offer any current complaints of chest pain, shortness of breath or abdominal discomfort. PHYSICAL EXAMINATION: GENERAL: A 69-year-old -Trinidadian male in no obvious distress. VITAL SIGNS: Last recorded temperature 97.1, pulse 91, respirations 20, blood pressure 163/97. [facility] [address] [place] [address] CONSULTATION Name: MACHO LEDESMA Room #: 44-[facility] IN [facility].#: [id number] Admission: 09/05/19 Attend Phys: Lawson Hurley MD Discharge: 09/13/19 Date of : 52 Report #: [id number] NEUROLOGIC: The patient is alert. He is pleasant, follows basic 1 step commands. Appears to be a reasonable historian. Asking appropriate questions. Facies were symmetric. He is not on any oxygen. EXTREMITIES: Functional range of motion of both upper extremities. Strength is probably a grade 4/5. Lower extremities, no focal calf swelling. He does have decreased distal sensation consistent with his peripheral neuropathy. I would grade his lower extremity strength at probably a grade 4-/5. He was able to sit to stand for me independently. I asked him if he was dizzy upon standing up and he said he was a little dizzy. The nurse indicated that he had done some ambulating out in the hallway earlier. He has not been seen by physical therapy or occupational therapy yet. ASSESSMENT: A 69-year-old male with the following problem list: 1. Acute hypoxic respiratory failure, much improved. 2. Left basilar infiltrate and small effusions in the setting of chronic obstructive pulmonary disease, tobacco use. 3. Hypertensive encephalopathy. Initial blood pressure 212/113. Blood pressures are now stabilized. Although last blood pressure was 163/97 with the one before that 144/85. 4. Renal insufficiency. 5. Diabetes mellitus. 6. Recent left lower extremity deep venous thrombosis. 7. History of tobacco abuse. 8. History of polysubstance abuse. PLAN: PT and OT are to work with him. It is my understanding that he ran out of his medications for the last month prior to the current admission. This included the Xarelto for his prior DVT. The patient is back on Xarelto at this time. He did quite well with transfers for me and apparently has done some ambulation in the hallway. Therapy will need to work with him. Hopefully, he will be able to return directly home, but we will need to see how he does when they assess him. It is my understanding that he is out of network for an acute in-hospital inpatient rehabilitation stay. Again, hopefully he can return directly home with continued improvement. <ELECTRONICALLY SIGNED> By: Rasheed Oswald MD 09/14/19 1152 [id number] [id number] Rasheed Oswald MD /nt
== END 2019-09-13 16:11 | DRG 189 ==
LOC: ER 06:24 → 3W 09:28 → EROBS 09:28 → 3W 12:48 → 2N 09-07 16:47 → 4S 09-12 18:47
PROVIDERS: Emergency Medicine; Nurse Practitioner; Nurse Practitioner Adult Health; Nurse Practitioner Family; Psychiatry & Neurology Neurology; ADMIT Hospitalist
PROC: HZ99ZZZ Pharmacotherapy for Substance Abuse Treatment, Other Replacement Medication (ICD-10-PCS; principal; 2019-09-13)
DX: J96.01 Acute respiratory failure with hypoxia (principal); I50.31 Acute diastolic (congestive) heart failure; J18.9 Pneumonia, unspecified organism; G92 Toxic encephalopathy; I50.33 Acute on chronic diastolic (congestive) heart failure; I67.4 Hypertensive encephalopathy; J44.1 Chronic obstructive pulmonary disease with (acute) exacerbation; F10.239 Alcohol dependence with withdrawal, unspecified; N17.9 Acute kidney failure, unspecified; E44.0 Moderate protein-calorie malnutrition; I16.1 Hypertensive emergency; I13.0 Hypertensive heart and chronic kidney disease with heart failure and stage 1 through stage 4 chronic kidney disease, or unspecified chronic kidney disease; I82.402 Acute embolism and thrombosis of unspecified deep veins of left lower extremity; R60.0 Localized edema; F11.11 Opioid abuse, in remission; J44.9 Chronic obstructive pulmonary disease, unspecified; E11.65 Type 2 diabetes mellitus with hyperglycemia; I11.0 Hypertensive heart disease with heart failure; E78.5 Hyperlipidemia, unspecified; E66.9 Obesity, unspecified; E11.40 Type 2 diabetes mellitus with diabetic neuropathy, unspecified; F32.9 Major depressive disorder, single episode, unspecified; F17.210 Nicotine dependence, cigarettes, uncomplicated; J96.02 Acute respiratory failure with hypercapnia; N18.2 Chronic kidney disease, stage 2 (mild); E11.22 Type 2 diabetes mellitus with diabetic chronic kidney disease; E11.649 Type 2 diabetes mellitus with hypoglycemia without coma; R41.0 Disorientation, unspecified; F39 Unspecified mood [affective] disorder; Z20.828 Contact with and (suspected) exposure to other viral communicable diseases; E11.21 Type 2 diabetes mellitus with diabetic nephropathy; E87.5 Hyperkalemia; G47.33 Obstructive sleep apnea (adult) (pediatric); Z86.718 Personal history of other venous thrombosis and embolism; Z86.19 Personal history of other infectious and parasitic diseases; Z79.01 Long term (current) use of anticoagulants; Z91.14 Patient's other noncompliance with medication regimen; Z68.34 Body mass index [BMI] 34.0-34.9, adult; Z79.4 Long term (current) use of insulin; Z79.899 Other long term (current) drug therapy; Z79.891 Long term (current) use of opiate analgesic
CPT/HCPCS: 10081; 10102; 10879

== ENCOUNTER 2020-12-25 16:21 | Emergency (ER) | payer OTHER ==
[~2020-12-25] VITALS: Ht 182.9 cm; Wt 111.1 kg
--- NOTE | ~2020-12-25 | EMS ---
[facility] [address] [place] [address] EMS Patient Care Report Name: MACHO LEDESMA Room #: REG EZRA Donahue#: [id number] Admission: 12/25/20 Attend Phys: Discharge: Date of : 52 Report #: [id number] THIS REPORT FOR: //name// Report Transmitted: 12/25/2020 16:26 EMS Care Summary [place], [place]/[facility] Incident [id number] @ 12/25/2020 15:53 Incident Location [address] [place] [address] Patient MACHO LEDESMA Male, 70 Years 1950 Patient Address [id number] [place] [address] Patient History Asthma,Diabetes,Hypertension (HTN),Depression, Patient Allergies No known allergies, Patient Medications Trazodone, Insulin, Chief Complaint dyspnea Disposition Transported No Lights/[place] Dispatch Reason Breathing Problem Transported To [facility] Narrative pt met walking outside. pt a&ox4 gcs 15 and did not present in apparent distress. pt stated the power has been out in his home x1 week. pt stated he is unable to use his nebulizer machine. pt stated hes had dyspnea x3 days. pt stated he did receive a covid vaccine. pt initially requested to be transported [facility] [address] [place] [address] EMS Patient Care Report Name: MACHO LEDESMA Room #: REG EZRA Donahue#: [id number] Admission: 12/25/20 Attend Phys: Discharge: Date of : 52 Report #: [id number] to [facility] but it is [facility]. pt was transferred onto ems cot and was secured in a semi fowlers position without incident. cebbs. pt was administered 3lpm o2 via NC. pt was transported non emergent. transport was uneventful and pt rested on ems cot. pt stated his breathing is much better. pt care was transferred to appropriate staff and ems goes back in service. pts bag was left with pt. Initial Vitals @16:04P: 106,R: 20,BP: 186/80,Pain: 0/10,GCS: 15,Glucose: 385,SpO2: 97,Revised Trauma: 12, @16:14P: 100,R: 20,BP: 138/80,GCS: 15,SpO2: 98,Revised Trauma: 12, Assessments @15:55MENTAL:No Abnormalities,SKIN:No Abnormalities,HEENT:Head/Face: No Abnormalities,Eyes: No Abnormalities,Neck/Airway: No Abnormalities,LUNG SOUNDS:General: No Abnormalities,Left Upper: No Abnormalities,Right Upper: No Abnormalities,Left Lower: No Abnormalities,Right Lower: No Abnormalities,ABDOMEN:General: No Abnormalities,Left Upper: No Abnormalities,Right Upper: No Abnormalities,Left Lower: No Abnormalities,Right Lower: No Abnormalities,PELVIS//GI:No Abnormalities,EXTREMITIES:Left Arm: No Abnormalities,Right Arm: No Abnormalities,Left Leg: No Abnormalities,Right Leg: No Abnormalities,PULSE:NEURO:No Abnormalities,@16:07MENTAL:No Abnormalities,SKIN:No Abnormalities,HEENT:Head/Face: No Abnormalities,Eyes: No Abnormalities,Neck/Airway: No Abnormalities,LUNG SOUNDS:General: No Abnormalities,Left Upper: No Abnormalities,Right Upper: No Abnormalities,Left Lower: No Abnormalities,Right Lower: No Abnormalities,ABDOMEN:General: No Abnormalities,Left Upper: No Abnormalities,Right Upper: No Abnormalities,Left Lower: No Abnormalities,Right Lower: No Abnormalities,PELVIS//GI:No Abnormalities,EXTREMITIES:Left Arm: No Abnormalities,Right Arm: No Abnormalities,Left Leg: No Abnormalities,Right Leg: No Abnormalities,PULSE:NEURO:No Abnormalities, Impression Acute Respiratory Distress (Dyspnea) Procedures @15:55ALS AssessmentSucceeded@15:58Oxygen FlowRate: 2 Device: Nasal Cannula (NC) Response: ImprovedSucceeded Timeline 15:51,Call Received 15:51,Dispatch Notified 15:53,Dispatched 15:53,En Route 15:54,On Scene 15:55,At Patient [address] [address] EMS Patient Care Report Name: ALISIA LEDESMAH Room #: REG EZRA Donahue#: [id number] Admission: 12/25/20 Attend Phys: Discharge: Date of : 52 Report #: [id number] 15:55,ALS Assessment,Succeeded, 15:58,Oxygen FlowRate: 2 Device: Nasal Cannula (NC) Response: ImprovedSucceeded, 16:04,BP: 186/80 M,PULSE: 106,RR: 20 R,SPO2: 97 Ox,ETCO2: ,B,PAIN: 0,GCS: 15, 16:05,Depart Scene 16:14,BP: 138/80 M,PULSE: 100,RR: 20 R,SPO2: 98 Ox,ETCO2: ,BG: ,PAIN: ,GCS: 15, 16:18,At Destination 16:35,Call Closed Disclaimer v1.1 Copyright 2020 [employer] This EMS Care Summary contains data elements from the applicable legal record (which may be displayed differently). It is designed to provide pertinent information for the following purposes: continuity of care, clinical quality, and state data reporting. The complete legal record is available to ED staff and administrators of the receiving hospital in [employer]'s Patient Tracker. All data is provided "as is."
[~2020-12-25 16:21] MED LIST: ADVAIR 500-501 EACH INH; ASPIR 8181 MG PO; BUSPIRONE HCL5 MG PO; CEFDINIR300 MG PO; DEMADEX20 MG PO; FUROSEMIDE 40 M40 MG PO; GABAPENTIN100 MG PO; IPRAT-ALBUT 0.5-3 ML INH; JANUVIA100 MG PO; JARDIANCE10 MG PO; LANTUS SUBQ; LEVEMIR FL100 UNIT/2 SUBQ; LEXAPRO 10 MG T10 M1 PO; LIPITOR40 MG PO; LOPRESSOR50 PO; NICOTINE TRANSD21 M1 TRANSDERM; NOVOLOG100 UNIT/1 SUBQ; PEPCID20 MG PO; POTASSIUM20 PO; PREDNISONE 10 M10 MG PO; PRINIVIL10 MG PO; PROAIR HFA8.5 GM INH; SENNA-TIME S T1 EACH PO; SEROQUEL 25 MG25 M1 PO; SPIRIVA18 MCG INH; SUBOXONE 8 MG-1 EAC3 SUBLING; TRADJENTA5 MG PO; TRAMADOL 50 MG50 MG PO; TRAZODONE 150150 M1 PO; TRAZODONE HCL100 MG PO; VENTOLIN HFA 1818 GM INH; VITAMIN B-1100 M2 PO; XANAX1 MG PO; XARELTO15 MG PO; XARELTO20 MG PO
[2020-12-25 16:49] LABS: ABSOLUTE NEUTROPHILS 3.6 thou/uL (1.4-8.2); EOSINOPHILS 3.6 % (0.0-3.0); HEMATOCRIT 36.9 % (42.0-52.0); HEMOGLOBIN 12.6 gm/dL (14.0-18.0); LYMPHOCYTES 26.9 % (24.0-44.0); MCH 29.2 pg (26.0-34.0); MCHC 34.2 g/dL (28.0-37.0); MCV 85.4 fL (80.0-100.0); MONOCYTES 9.9 % (1.0-8.0); PLATELET COUNT 177 thou/uL (150-400); POLYS 58.6 % (36.0-66.0); RBC 4.33 mil/uL (4.50-6.00); RDW 12.9 % (10.5-14.5); WBC 6.2 thou/uL (4.0-11.0)
[2020-12-25 16:56] LABS: ANION GAP 7 mmol/L (7-16); BUN 26 mg/dL (7-18); CHLORIDE 101 mmol/L (98-107); CO2 26 mmol/L (21-32); CREATININE 1.5 mg/dL (0.7-1.3); GLUCOSE 346 mg/dL (74-106); SODIUM 134 mmol/L (136-145)
[2020-12-25 16:57] LABS: POTASSIUM 4.5 mmol/L (3.5-5.1)
[2020-12-25 17:06] LABS: SGOT 21 U/L (15-37); SGPT 16 U/L (30-65); TOTAL BILIRUBIN 0.4 mg/dL (0.2-1.0); TOTAL PROTEIN 7.9 g/dL (6.4-8.2); TROPONIN-I <0.06 ng/mL (<0.06)
[2020-12-25 22:12] VITALS: BP 178/99
--- NOTE | 2020-12-26 07:09 | EKG ---
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: : 1950 Requested By: Blanche Rodríguez Order Number: [id number] MD: Sanju Robledo Measurements Intervals [place] Rate: 98 P: 82 TN: 140 QRS: 11 QRSD: 74 T: 64 QT: 334 QTc: 427 Interpretive Statements Sinus rhythm Probable left atrial enlargement Baseline wander in lead(s) II,III,aVF Compared to ECG 09/11/2019 09:05:41 No significant changes Electronically Signed On 12-26-2020 7:08:58 CDT by Sanju Robledo [email or web address] <ELECTRONICALLY SIGNED> By: Sanju Robledo MD, [facility] 12/26/20 0708 D: [id number] 24 Sanju Robledo MD, FACC /EPI
== END 2020-12-25 22:12 | disposition home or self-care (01) ==
LOC: ER 16:21
PROVIDERS: Emergency Medicine
DX: J44.1 Chronic obstructive pulmonary disease with (acute) exacerbation (principal); Z20.822 Contact with and (suspected) exposure to COVID-19; E11.9 Type 2 diabetes mellitus without complications; I10 Essential (primary) hypertension; Z87.891 Personal history of nicotine dependence; Z79.51 Long term (current) use of inhaled steroids; Z79.82 Long term (current) use of aspirin; Z79.891 Long term (current) use of opiate analgesic; Z79.4 Long term (current) use of insulin

== ENCOUNTER 2021-05-03 01:42 | Inpatient (IN) | payer OTHER ==
[~2021-05-03] VITALS: Ht 182.9 cm; Wt 108.9 kg
--- NOTE | ~2021-05-03 | EMS ---
[facility] [address] [place] [address] EMS Patient Care Report Name: MACHO LEDESMA Room #: 170-1 ADM IN M.R.#: [id number] Admission: 05/03/21 Attend Phys: Milli Hernandez Discharge: Date of : 52 Report #: [id number] THIS REPORT FOR: //name// Report Transmitted: 05/04/2021 14:52 EMS Care Summary [place], [place]/[facility] Incident [id number] @ 05/03/2021 01:04 Incident Location [address] [place] [address] Patient MACHO LEDESMA Male, 71 Years 1950 Patient Address [address] [place] [address] Patient History Chronic Obstructive Pulmonary Disease (COPD),Hypertension (HTN),Type 2 Diabetes, Patient Allergies No known allergies, Patient Medications Albuterol, Chief Complaint SOA Disposition Transported Lights/[place] Dispatch Reason Breathing Problem Transported To [facility] Narrative M41 DISPATCHED WITH P42 TO A BREATHING PROBLEM. M41 AOS AND FOUND PT WITH P42. PT WAS BEING GIVEN ALBUTEROL AND ATROVENT. PT STATES THAT HE WAS SLEEPING WHEN HE BECAME SOA ABOUT [address] MIN[address]ES PRIOR TO EMS [facility] [address] [place] [address] EMS Patient Care Report Name: MACHO LEDESMA Room #: 170-1 ADM IN M.R.#: [id number] Admission: 05/03/21 Attend Phys: Milli Hrenandez Discharge: Date of : 52 Report #: [id number] ARRIVAL. THE PT STATES HE TOOK HIS INHALER TWICE WITH NO RELIEF. PT DENIES PAIN. PT DENIES CP, DIZZINESS, NV, ABD PAIN. PT IS AUDIBLY WHEEZING AND BREATHING IS LABORED. MED HX, ALLERGIES, AND MEDS OBTAINED. PT MOVED TO THE COT. VITALS OBTAINED. BGA OBTAINED. PT PLACED ON CPAP AND GIVEN ANOTHER ALBUTEROL TREATMENT. [address] LE[address] OBTAINED. M[address] [facility]. EN ROUTE PT CONDITION IMPROVED. REPORT GIVEN TO ALLYSON RODRÍGUEZ. SIGNATURES OBTAINED. TRANSFER OF CARE TOOK PLACE. M41 IN SERVICE. [employer] Initial Vitals @01:31P: 125,BP: 174/95,SpO2: 100, @01:28P: 130,SpO2: 81, @01:23P: 145,CO: 5,SpO2: 97, @01:35P: 122,R: 24,BP: 171/97,Pain: 0/10,GCS: 15,SpO2: 100,Revised Trauma: 12, @01:26P: 129,R: 24,BP: 195/126,Pain: 0/10,GCS: 15,Glucose: 298,SpO2: 98,Revised Trauma: 12,OK Suspected: false Assessments @01:14MENTAL:Event Oriented,Time Oriented,Person Oriented,Place Oriented,SKIN:HEENT:Head/Face: No Abnormalities,Neck/Airway: No Abnormalities,LUNG SOUNDS:General: No Abnormalities,ABDOMEN:General: No Abnormalities,PELVIS//GI:No Abnormalities,EXTREMITIES:Capillary Refill: Right Upper: < 2 Sec,Left Arm: No Abnormalities,Right Arm: No Abnormalities,Left Leg: No Abnormalities,Right Leg: No Abnormalities,PULSE:Radial: 2+ Normal,NEURO:No Abnormalities,@01:35MENTAL:Event Oriented,Person Oriented,Place Oriented,Time Oriented,SKIN:HEENT:Head/Face: No Abnormalities,Neck/Airway: No Abnormalities,LUNG SOUNDS:General: No Abnormalities,ABDOMEN:General: No Abnormalities,PELVIS//GI:No Abnormalities,EXTREMITIES:Capillary Refill: Right Upper: < 2 Sec,Left Arm: No Abnormalities,Right Arm: No Abnormalities,Left Leg: No Abnormalities,Right Leg: No Abnormalities,PULSE:Radial: 2+ Normal,NEURO:No Abnormalities, Impression Chronic Obstructive Pulmonary Disease (COPD) Procedures @01:14 ALS Assessment Response: UnchangedSucceeded [address] [address] EMS Patient Care Report Name: MACHO LEDESMA Room #: 170-1 ADM IN .R.#: [id number] Admission: 05/03/21 Attend Phys: Milli Hernandez Discharge: Date of : 52 Report #: [id number] @01:27 CPAP FlowRate: 10 Response: ImprovedSucceeded @01:27 3-Lead ECG Response: UnchangedSucceeded @PTAAlbuterol - 2.5 Milligrams (mg) - Nebulized Response: Unchanged @01:27 Albuterol - 2.5 Milligrams (mg) - Nebulized Response: Improved @PTAAtrovent - 0.5 Milligrams (mg) - Nebulized Response: Unchanged Timeline REINFORCING STEEL 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5 Milligrams (mg) - Nebulized,Response: Improved 01:28,BP: / M,PULSE: 130,RR: R,SPO2: 81 Ox,ETCO2: ,BG: ,PAIN: ,GCS: , 01:29,Depart Scene 01:31,BP: 174/95 M,PULSE: 125,RR: R,SPO2: 100 Ox,ETCO2: ,BG: ,PAIN: ,GCS: , 01:35,BP: 171/97 M,PULSE: 122,RR: 24 R,SPO2: 100 Ox,ETCO2: ,BG: ,PAIN: 0,GCS: 15, 01:39,At Destination 01:52,Call Closed Disclaimer v1.1 Copyright 2020 [employer] This EMS Care Summary contains data elements from the applicable legal record (which may be displayed differently). It is designed to provide pertinent information for the following purposes: continuity of care, clinical quality, and state data reporting. The complete legal record is available to ED staff and administrators of the receiving hospital in [employer]'s Patient Tracker. All data is provided "as is."
[2021-05-03 01:52] VITALS: BP 168/106
[2021-05-03 02:24] LABS: BE(vivo) -0.4 mmol/L (-2 to +3); HCO3 24.8 mmol/L (22.0-26.0); PCO2 42.7 mmHg (35.0-45.0); PO2 126.3 mmHg (80.0-100.0); pH 7.382 (7.360-7.450); sO2 98.5 % (92.0-98.0)
[2021-05-03 02:30] LABS: ABSOLUTE NEUTROPHILS 4.1 thou/uL (1.4-8.2); BASOPHILS 0.7 % (0.0-2.0); EOSINOPHILS 2.6 % (0.0-3.0); HEMATOCRIT 40.8 % (42.0-52.0); HEMOGLOBIN 13.8 gm/dL (14.0-18.0); MCH 28.8 pg (26.0-34.0); MCHC 33.9 g/dL (28.0-37.0); MCV 84.9 fL (80.0-100.0); MONOCYTES 11.3 % (1.0-8.0); PLATELET COUNT 154 thou/uL (150-400); POLYS 60.4 % (36.0-66.0); RBC 4.81 mil/uL (4.50-6.00); RDW 14.2 % (10.5-14.5); WBC 6.8 thou/uL (4.0-11.0)
[2021-05-03 02:43] LABS: CALCIUM 9.2 mg/dL (8.5-10.1); CREATININE 1.5 mg/dL (0.7-1.3); POTASSIUM 3.8 mmol/L (3.5-5.1)
[2021-05-03 02:48] LABS: ALBUMIN 3.3 g/dL (3.4-5.0); TOTAL BILIRUBIN 0.2 mg/dL (0.2-1.0); TOTAL PROTEIN 8.3 g/dL (6.4-8.2)
[2021-05-03] MEDS ORDERED: BUPRENORPHIN-N1 EACH (12:55)
[2021-05-04 07:11] LABS: CALCIUM 9.7 mg/dL (8.5-10.1); CREATININE 1.6 mg/dL (0.7-1.3); POTASSIUM 4.6 mmol/L (3.5-5.1)
--- NOTE | 2021-05-04 07:27 | EKG ---
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 : 1950 Requested By: Blanche Rodríguez Order Number: [id number] MD: Sanju Robledo Measurements Intervals [place] Rate: 117 P: 72 RI: 82 QRS: 12 QRSD: 76 T: 78 QT: 313 QTc: 437 Interpretive Statements Sinus tachycardia Minimal ST depression, anterolateral leads Compared to ECG 12/25/2020 16:25:47 ST (T wave) deviation now present Sinus rhythm no longer present Electronically Signed On 05-04-2021 7:27:13 HEAD SWAMPER by Sanju Robledo [email or web address] <ELECTRONICALLY SIGNED> By: Sanju Robledo MD, [facility] 05/04/2127 015 0 Sanju Robledo MD, FAC /EPI
[2021-05-04 18:47] VITALS: BP 141/81
[2021-05-04 20:23] VITALS: BP 159/96
--- NOTE | 2021-05-04 23:58 | NUR ---
ASSUMED CARE OF PT AT 1930 ON 05/04/21. THIS NURSE COMPLETED ADMISSION HISTORY, ASSESSMENT, EDUCATION ON PT. CONSENTS ARE AT BEDSIDE. PT STATED, "I WILL SIGN THEM IN THE MORNING". PT WAS ORIENTED TO ROOM, CALL, LIGHT & UNIT. IS A&OX4. IS ON 1L OF O2/NC. HAS PRODUCTIVE COUGH WITH GREEN SPUTUM. SOB WITH EXCERTION. IS ABLE TO TURN SELF IN BED. SCDS APPLIED. WAS PLACED ON TELE. IS NSR. IS ACCU CHECKS ACHS. IS ON HIGH DOSE SS. LABS & VITALS REVIEWED. CALL LIGHT WITHIN REACH. IS UP WITH 1 ASSIST, GB, WALKER. FALL PRECAUTIONS & HOURLY ROUNDING IMPLEMENTED THIS SHIFT. PT REPORTED THE USE OF CANE PRIOR TO ADMISSION. CALLS APPROPRIATELY FOR ASSISTANCE PRN. VOIDS PER URINAL.
[2021-05-05 01:06] LABS: GLYCOHEMOGLOBIN (HGB A1C) 10.8 % (4.8-5.6)
[2021-05-05 07:17] VITALS: BP 144/73
--- NOTE | 2021-05-05 09:36 | NUR ---
Chart review. Unable to visit with paulina related bedside staff in room with him, checking VS and valentina trying to get out of bed with rails up. Confused, diff to understand him verbally. Will cont following. Called his sister joyce, not accepting calls at this time.
--- NOTE | 2021-05-05 10:24 | NUR ---
A/O 2-3 FORGETFUL. 1 L O2 VIA NASAL CANNULA. ONE ASSIST WITH WALKER. CONT B/B-USES URINAL IN BED. SR ON TELE. AC HS ACCU CHECKS. BS WAS 70, OJ GIVEN BS RECHECK 75. PRODUCTIVE COUGH- THICK, GREEN SPUTUM NOTED. BILATERAL DISCOLORATION LEGS/FEET. SOB WITH MOVEMENT. NO PAIN NOTED. IS LOOKING FOR HIS WALLET. CALLED NUMBER LISED FOR HIS SISTER AND NUMBER SAID ITS NOT TAKING CALLS. HAS BEEN IMPULSIVE A FEW TIMES THIS MORNING JUMPING OUT OF BED TO GO DOWNSTAIRS TO FIND HIS WALLET, EASILEY REDIRECTED.
[2021-05-05 11:10] VITALS: BP 163/89
[2021-05-05 12:55] LABS: BE(vivo) 3.7 mmol/L (-2 to +3); HCO3 28.7 mmol/L (22.0-26.0); PCO2 44.7 mmHg (35.0-45.0); PO2 81.5 mmHg (80.0-100.0); pH 7.426 (7.360-7.450); sO2 96.2 % (92.0-98.0)
--- NOTE | 2021-05-05 14:29 | NUR ---
[facility] following if needs [facility] [place]. Cm tried calling his sister joyce again, unable to leave a message related to mail box is full. DX: copd. Noted he lives with his sister joyce, in condo 10 steps. has a cane. has home btx. Non complaint with his treatment. Noted last admit he was declined for skilled at [facility] and accepted by [facility] for skilled rehab. No anticipated dc today. will cont following if needs arise.
[2021-05-05 15:08] VITALS: BP 154/88
[2021-05-05 20:54] VITALS: BP 171/83
--- NOTE | 2021-05-06 06:14 | NUR ---
RECEIVED CARE OF THIS PATIENT AT 1900. PATIENT ALERT AND ORIENTED TO PERSON, PLACE AND SITUATION. ACCUCHECK WAS 132, 6 UNITS OF INSULIN GIVEN. HAD A SHOWER LAST EVENING. CAN BE IMPULSIVE AND SOME WHAT AGGITATED. C/O PAIN, MED GIVEN. SLEPT MOST OF NIGHT.
[2021-05-06 08:31] VITALS: BP 155/77
[2021-05-06] MEDS ORDERED: DOXYCYCLINE HYC50 MG PO (09:20)
[2021-05-06] MEDS ORDERED: PREDNISONE 20 M20 MG PO (09:21)
--- NOTE | 2021-05-06 10:07 | NUR ---
A/O X 4. ON 2 L O2 VIA NASAL CANNULA. STAND BY ASSIST WITH TRANSFERS. LEFT UPPER ARM PIV SALINE LOCKED. USES URINAL IN HIS BED. SR ON TELE. BS @ BREAKFAST 45. DEXTROSE 50% 25 GM GIVEN IV PUSH. RECHECKED IN 30 MINS AND BS 122. NO DIZZINESS NOTED. TRAJENTA HELD. DR. WOLFE MADE AWARE OF LOW BS AND WHAT WAS GIVEN AND HE SAID THAT HE COULD GO HOME TODAY.
[2021-05-06 11:11] VITALS: BP 155/77
--- NOTE | 2021-05-06 16:57 | NUR ---
Pt dc'd to home today via cab voucher. He refused home o2 referral and exercise sat. Pt phone charged and he indicated to staff his sister would be there to let him in the home.
== END 2021-05-06 13:43 | disposition home or self-care (01) | DRG 192 ==
LOC: ER 01:42 → 4S 03:46 → EROBS 03:46 → 4S 05-04 18:43
PROVIDERS: Emergency Medicine; Nurse Practitioner; Nurse Practitioner Family; ADMIT Hospitalist; ATTEND Hospitalist
DX: J44.1 Chronic obstructive pulmonary disease with (acute) exacerbation (principal); E11.51 Type 2 diabetes mellitus with diabetic peripheral angiopathy without gangrene; Z79.899 Other long term (current) drug therapy; E78.5 Hyperlipidemia, unspecified; N18.9 Chronic kidney disease, unspecified; F17.210 Nicotine dependence, cigarettes, uncomplicated; R06.03 Acute respiratory distress; Z20.822 Contact with and (suspected) exposure to COVID-19; I11.0 Hypertensive heart disease with heart failure; I50.9 Heart failure, unspecified; R53.81 Other malaise; Z86.718 Personal history of other venous thrombosis and embolism; Z86.19 Personal history of other infectious and parasitic diseases; Z91.14 Patient's other noncompliance with medication regimen; Z83.3 Family history of diabetes mellitus; Z82.49 Family history of ischemic heart disease and other diseases of the circulatory system; Z82.3 Family history of stroke; Z71.6 Tobacco abuse counseling; Z79.82 Long term (current) use of aspirin
CPT/HCPCS: 10100